=== PATIENT | female | born 1975 | race African-American/Black ===

== ENCOUNTER 2020-10-28 16:27 | Emergency (ER) | payer OTHER ==
[2020-10-28 16:49] VITALS: BP 129/72; TEMP 98.2; BMI 44.3
[2020-10-28] MEDS ORDERED: diazePAM 5 MG TABLET PO ONE (17:27)
[2020-10-28] MEDS ORDERED: KETOROLAC TROMETHAMINE 30 MG/1 ML VIAL IM ONE (17:27)
[2020-10-28] MEDS ORDERED: diazePAM CARPU-JECT 10 MG/2 ML DISP.SYRIN ONE (17:42)
[2020-10-28 19:23] VITALS: PULSE 85
== END 2020-10-28 19:07 | disposition home or self-care (01) ==
LOC: JER 16:27 → JERFT 16:27
PROC: 3E0233Z Introduction of Anti-inflammatory into Muscle, Percutaneous Approach (ICD-10-PCS; principal; 2020-10-28)
DX: M54.5 Low back pain (principal)
CPT/HCPCS: 71046-TC-FY; 99284-25